=== PATIENT | male | born 1965 | race Caucasian/White ===

== ENCOUNTER 2020-08-07 20:31 | Emergency (ER) | payer OTHER ==
[~2020-08-07] VITALS: Ht 188 cm; Wt 118.8 kg
[2020-08-07 20:50] VITALS: BP 122/71
[2020-08-07 22:30] VITALS: BP 122/71
== END 2020-08-07 20:51 | disposition home or self-care (01) ==
LOC: MED 20:31
DX: M79.671 Pain in right foot (principal); Z89.421 Acquired absence of other right toe(s); Z48.00 Encounter for change or removal of nonsurgical wound dressing
CPT/HCPCS: 99281